=== PATIENT | female | born 1955 | race Caucasian/White ===

== ENCOUNTER → 2025-01-27 09:34 | Outpatient (REF) | payer MEDICARE, OTHER, SELFPAY | LOC: HWRAD 09:34 | PROVIDERS: ATTENDING PHYSICIAN Urology; FAMILY PHYSICIAN Internal Medicine | DX: N95.8 Other specified menopausal and perimenopausal disorders (principal); N39.0 Urinary tract infection, site not specified; M62.89 Other specified disorders of muscle; R39.198 Other difficulties with micturition | CPT/HCPCS: 76770; 76856 ==